=== PATIENT | male | born 1995 | race Caucasian/White ===

== ENCOUNTER → 2018-03-25 | Outpatient (CLI) | payer OTHER | LOC: BMCIMAGING 14:43 | PROVIDERS: ATTEND Emergency Medicine | DX: S69.91XA Unspecified injury of right wrist, hand and finger(s), initial encounter (principal); S52.591A Other fractures of lower end of right radius, initial encounter for closed fracture; S62.034A Nondisplaced fracture of proximal third of navicular [scaphoid] bone of right wrist, initial encounter for closed fracture ==

== ENCOUNTER → 2018-04-15 | Outpatient (CLI) | payer OTHER | LOC: BMCIMAGING 13:54 | PROVIDERS: ATTEND Orthopaedic Surgery Hand Surgery | DX: S52.571D Other intraarticular fracture of lower end of right radius, subsequent encounter for closed fracture with routine healing (principal) ==

== ENCOUNTER → 2018-04-30 | Outpatient (CLI) | payer OTHER | LOC: BMCIMAGING 09:55 → EDSTATUS 09:57 | PROVIDERS: ATTEND Orthopaedic Surgery Hand Surgery | DX: S52.501D Unspecified fracture of the lower end of right radius, subsequent encounter for closed fracture with routine healing (principal); S62.002D Unspecified fracture of navicular [scaphoid] bone of left wrist, subsequent encounter for fracture with routine healing ==

== ENCOUNTER → 2018-05-21 | Outpatient (CLI) | payer OTHER | LOC: BMCIMAGING 09:05 | PROVIDERS: ATTEND Orthopaedic Surgery Hand Surgery | DX: S52.611A Displaced fracture of right ulna styloid process, initial encounter for closed fracture (principal) ==

== ENCOUNTER → 2018-06-18 | Outpatient (CLI) | payer OTHER | LOC: BMCIMAGING 08:51 | PROVIDERS: ATTEND Orthopaedic Surgery Hand Surgery | DX: S52.501D Unspecified fracture of the lower end of right radius, subsequent encounter for closed fracture with routine healing (principal) ==

== ENCOUNTER → 2018-07-30 | Outpatient (CLI) | payer OTHER | LOC: BMCIMAGING 08:48 | PROVIDERS: ATTEND Orthopaedic Surgery Hand Surgery | DX: S52.611D Displaced fracture of right ulna styloid process, subsequent encounter for closed fracture with routine healing (principal); S62.001D Unspecified fracture of navicular [scaphoid] bone of right wrist, subsequent encounter for fracture with routine healing; S52.501D Unspecified fracture of the lower end of right radius, subsequent encounter for closed fracture with routine healing ==